=== PATIENT | female | born 1980 | race African-American/Black ===

== ENCOUNTER 2017-02-21 18:25 | Inpatient (IN) | payer OTHER ==
[~2017-02-21] VITALS: Ht 157.5 cm; Wt 92.5 kg
[2017-02-25] MEDS ORDERED: PRENATAL VIT1 TAB PO (13:30)
[2017-02-25] MEDS ORDERED: FEOSOL-DPS325 MG PO (13:30)
[2017-02-25] MEDS ORDERED: COLACE-DPS100 MG PO (13:31)
[2017-02-25] MEDS ORDERED: MOTRIN-DPS800 MG PO (13:31)
[2017-02-25] MEDS ORDERED: NIPPLECREAM TP (13:31)
[2017-02-25] MEDS ORDERED: PERCOCET 5 DPS1 TAB PO (13:31)
--- NOTE | 2017-03-29 08:25 | OR ---
ADMIT: 02/21/2017 RM/LOC: 229 [facility] MR#: [id number] [address] ROEL SEPULVEDA [address] [place] [address] Operative/Delivery Room Report SEX: F AGE: 36 : 1980 SURGERY DATE: 02/22/2017 SURGEON: Gregorio Joseph MD PRINCIPAL DIAGNOSES: 1. Term intrauterine at 41 and 1/2 weeks' estimated gestational age. 2. Nonreassuring heart tones. POSTOPERATIVE DIAGNOSES: 1. Term intrauterine at 41 and 1/2 weeks' estimated gestational age. 2. Nonreassuring heart tones. PROCEDURE: Primary low transverse section. ORE BRIDGE OPERATOR: Meseret Weber MD Resident. INDICATION: The patient is a 36-year-old female, 2, para 0, who presented at 41 and 1/2 weeks' estimated gestational age for elective induction of labor. The patient underwent a cervical ripening and subsequent induction of labor. When the patient was going to the point where she was caitlyn regularly. She can be began having repetitive late heart rate decelerations. Pitocin was discontinued. The patient at that point was 1.5 cm dilated, still long and -3 station. We reviewed management options with the patient. Given the non-reassuring heart tones with strong contractions remote from delivery, decision was made to proceed with primary low transverse section. ESTIMATED BLOOD LOSS: 500 mL. COMPLICATIONS: None. FINDINGS: Viable male , 8 pounds 10 ounces with of 5 at 1 and 9 at 5 minutes. DESCRIPTION OF PROCEDURE: The patient was taken to the operating room, where she was prepped and draped in the usual fashion in dorsal supine position with a leftward tilt. A midline skin incision was made through the patient's previous laparotomy incision from an open ectopic . This incision was carried through sharply to the underlying layer of fascia. Fascia was nicked in the midline. The fascial incision was extended superiorly and inferiorly with good visualization of bladder. Peritoneum was identified, tented up with Angélica clamps, and entered sharply with Trent scissors. This incision was then extended superiorly and inferiorly with good visualization of the bladder. Bladder blade was then inserted. Bladder flap was created with a combination of sharp and blunt dissection. Uterus was then nicked in the midline and the uterine incision was extended laterally with blunt digital dissection. 's head was then delivered atraumatically utilizing a ADMIT: 02/21/2017 RM/LOC: 229 [facility] MR#: [id number] [address] [facility] [address] [place] [address] Operative/Delivery Room Report SEX: F AGE: 36 : 1980 unilateral forceps line. Remainder of the was delivered. A nuchal cord x1 was noted and was reduced without difficulty. The remainder of the was delivered. Cord was clamped x2, cut, and the was handed off to the waiting nursing staff. Placenta was then delivered intact with normal appearance. The uterus was then exteriorized and cleared of all clots and debris. The endometrial cavity was then swept with a moist laparotomy sponge to remove any remaining products of conception. The uterine incision was then reapproximated with a running locked length of 0 Vicryl. Four [id number] sutures of 0 Vicryl were then used to obtain good hemostasis. The patient's abdomen was then suctioned. The uterus was returned to the patient's abdomen. The paracolic gutters were cleared of all clots and debris. The uterine incision was again inspected and noted to be hemostatic. The fascia was then reapproximated with a single running length of 0 PDS. Subcutaneous tissue was then reapproximated utilizing several interrupted sutures of 3-0 plain gut, and the skin was then closed with Insorb subcuticular sobeida. The patient tolerated the procedure well and was taken to the recovery room in stable condition. All sponge, instrument, and needle counts were correct. Gregorio Joseph MD/ eligio JOB #: [id number] CC: Gregorio Joseph, Attending Physician Juanita Brian, Family Physician
--- NOTE | 2017-03-29 08:25 | HP ---
ADMIT: 02/21/2017 RM/LOC: 229 [facility] MR#: [id number] [facility] [address] [place], [place] [address] ROEL SEPULVEDA [address] [place] [address] Pre-OP History and Physical SEX: F AGE: 36 : 1980 DATE OF SERVICE: PRINCIPAL DIAGNOSES: 1. Term intrauterine at 41 and 1/2 weeks' estimated gestational age. 2. Nonreassuring antepartum testing. HISTORY OF PRESENT ILLNESS: The patient is a 36-year-old, female, 2, para 0-0-1-0, who presented at 41 and 1/2 weeks' estimated gestational age for cervical ripening and induction of labor. Patient underwent cervical ripening, received three doses of misoprostol overnight with a small amount of change to her cervix. She was begun on Pitocin. The next morning, began having regular contractions every 2 to 4 minutes or so and then in the course, began having late heart rate decelerations which did resolve with discontinuation of the Pitocin, and resolution of her regular contractions. PREVIOUS MEDICAL HISTORY: The patient denies any significant previous medical history. OBSTETRICAL HISTORY: Significant for laparotomy with removal of an ectopic . ALLERGIES: SHE HAS INTOLERANCES TO ASPIRIN AND AMOXICILLIN. SOCIAL HISTORY: She does not smoke, drink, or use drugs. FAMILY HISTORY: Significant for hypertension. PHYSICAL EXAMINATION: GENERAL: The patient is a well-developed, well- nourished, obese female. Alert and oriented, in no apparent distress with normal stream of thought and content of speech. HEART: Regular rate and rhythm without murmurs, rubs, gallops. LUNGS: Clear to auscultation bilaterally. ABDOMEN: Soft, gravid. heart tones in the 130s with good variability and accelerations. Rare uterine contractions at the time of dictation. Cervix 1.5 cm dilated, long, and -3 station. ADMIT: 02/21/2017 RM/LOC: 229 [facility] MR#: [id number] [address] RO[facility] SEPULVEDA [address] [place] [address] Pre-OP History and Physical SEX: F AGE: 36 : 1980 ASSESSMENT: Term intrauterine remote from delivery. We discussed management options with the patient including continued attempt of vaginal delivery with placement of a cervical dilation balloon versus proceeding with primary low transverse section. We discussed risks involved with surgery including risks of infection, risk of bleeding with possible need for blood transfusion, and the attendant infectious risks inherent in blood transfusion. We also discussed risk of damage to other organs including, but not limited to, bowel, bladder, major blood vessels, and ureters with possible need for additional surgery and repair should such damage occur. After discussing the available options, the implication of the repetitive late heart rate decelerations with contractions so remote from delivery, the patient opts to proceed with a primary low transverse section. Gregorio Joseph MD/ eligio JOB #: [id number] CC: Gregorio Joseph, Attending Physician Juanita Brian, Family Physician
--- NOTE | 2017-04-19 09:38 | DS ---
ADMIT: 02/21/2017 RM/LOC: 229 [facility] MR#: [id number] [address] ROEL SEPUL[address]EDA [address] [place] [address] General Discharge Summary SEX: F AGE: 36 : 1980 ADMISSION DATE: 02/21/2017 DISCHARGE DATE: 02/24/2017 PRINCIPAL DIAGNOSES: 1. Term intrauterine at 41-1/2 weeks' estimated gestational age. 2. Nonreassuring heart tones. REASON FOR HOSPITALIZATION: The patient is a 36-year-old female, 2, para 0, who presented at 41-1/2 weeks' estimated gestational age for elective induction of labor. In the course of her induction, she began having repetitive late heart rate decelerations, giving nonreassuring heart tones with strong contractions remote from delivery. She decided to proceed with primary low transverse section. OPERATIVE PROCEDURES: The patient underwent a primary low transverse section via midline incision on 02/22/2017. HOSPITAL COURSE: The patient was admitted, underwent an induction of labor with subsequent primary low transverse section. She did well through the initial postoperative day. By the morning of postoperative day #1, the patient was doing well, tolerating a regular diet, experiencing good pain control with oral pain medications, ambulating without difficulty, and using the bathroom without any problems. The patient did have some retained clots with increased bleeding. She underwent a manual extraction of the clots and was begun on iron sulfate. By the morning of day #1, she was doing fairly well, tolerating a regular diet, and some lightheadedness with standing but overall doing fairly well. Hemoglobin was 6.1. She continued to do well through the initial day. By the morning of postoperative day #2, she was doing well, tolerating a regular diet, experiencing good pain control with oral pain medications, ambulating without difficulty, and using the bathroom without any problems. We discussed possibility of blood transfusion, and the patient declined it. She was dismissed home on day #2 on the following medications: 1. Motrin 800 mg one tab p.o. q.8 hours p.r.n. 2. Percocet 5, one to two tabs, p.o. q.4 to 6 hours p.r.n. 3. Iron sulfate 325 mg one tab p.o. b.i.d. She was instructed to follow up in the clinic again in 2 weeks' time and again in 6 weeks' time, sooner as needed for any problems. Gregorio Joseph MD/ eligio JOB #: [id number] CC: Gregorio Joseph MD, Attending Physician Juanita Brian MD, Family Physician
== END 2017-02-24 14:30 | disposition home or self-care (01) | DRG 765 ==
LOC: 2LDRP 18:25 → BC 18:25 → 2LDRP 18:59
PROVIDERS: ADMIT Obstetrics & Gynecology
PROC: 10D00Z1 Extraction of Products of Conception, Low, Open Approach (ICD-10-PCS; principal; 2017-02-22)
PROC: 3E0P7GC Introduction of Other Therapeutic Substance into Female Reproductive, Via Natural or Artificial Opening (ICD-10-PCS; principal; 2017-02-22)
DX: O48.0 Post-term pregnancy (principal); O72.1 Other immediate postpartum hemorrhage; D62 Acute posthemorrhagic anemia; O76 Abnormality in fetal heart rate and rhythm complicating labor and delivery; O90.81 Anemia of the puerperium; Z3A.41 41 weeks gestation of pregnancy; Z37.0 Single live birth

== ENCOUNTER → 2017-03-02 | Outpatient (CLI) | payer OTHER, MEDICAID ==
[~2017-03-02] MED LIST: COLACE-DPS100 MG PO; FEOSOL-DPS325 MG PO; MOTRIN-DPS800 MG PO; NIPPLECREAM TP; PERCOCET 5 DPS1 TAB PO; PRENATAL VIT1 TAB PO
== END | disposition home or self-care (01) ==
LOC: THER.SSS 16:21 → EDSTATUS 17:37 → 2LDRP 18:13 → THER.SSS 18:13 → 2LDRP 18:13
DX: D50.0 Iron deficiency anemia secondary to blood loss (chronic) (principal)